=== PATIENT | male | born 1965 | race Caucasian/White ===

== ENCOUNTER 2019-07-21 09:53 | Emergency (ER) | payer OTHER ==
[2019-07-21] MEDS ORDERED: IBUPROFEN 600 MG TABLET PO ONE (10:47)
--- NOTE | 2019-07-21 10:53 | Emergency Department Record ---
History of Present Illness - General Chief complaint: Male Urogenital Problem Stated complaint: GROIN PAIN/WORK INJURY Time Seen by Provider: 07/21/19 10:19 Source: Patient Mode of Arrival: Ambulatory Limitations: No limitations - History of Present Illness Initial comments: 53 yo male presents from work with left groin pain after lifting about a 20 [address] weight. He felt a sharp pain in the groin radiating to the scrotum. No swelling or bulging. No dysuria. No testicle pain or swelling. He has had a hernia on the right in the past. MD Complaint: Other (Left groin pain) Onset/Timin -: Hour(s) Location: Left inguinal region Radiation: Other Severity: Moderate Severity scale (1-10): 7 Quality: Sharp Consistency: Constant Improves with: None Worsens with: None Reports: Denies other symptoms - Related Data Home Medications Medication Instructions Recorded Confirmed Last Taken Fluticasone/Vilanterol [Breo 1 each IH DAILY 07/21/19 07/21/19 Unknown Ellipta 100-25 Mcg INH] Allergies Allergy/AdvReac Type Severity Reaction Status Date / Time No Known Drug Allergies Allergy Verified 07/21/19 10:27 Travel Screening - Travel/Exposure Within Last 30 Days Have you traveled within the last 30 days?: No Review of Systems Constitutional: Denies: Chills, Fever, Malaise, Weakness Eyes: Denies: Eye discharge ENT: Denies: Congestion, Throat pain Respiratory: Denies: Cough, Dyspnea Cardiovascular: Denies: Chest pain, Palpitations, Syncope Endocrine: Denies: Fatigue Gastrointestinal: Reports: Abdominal pain. Denies: Diarrhea, Nausea, Vomiting Genitourinary: Denies: Dysuria, Frequency, Hematuria, Retention, Testicular pain, Testicular mass, Urgency Musculoskeletal: Denies: Arthralgia, Back pain, Myalgia Skin: Denies: Bruising, Change in color, Rash Neurological: Denies: Headache Psychiatric: Denies: Anxiety Hematological/Lymphatic: Denies: Easy bleeding, Easy bruising Past Medical History - SOCIAL HISTORY Smoking Status: Former smoker Alcohol Use: None Drug Use: None - RESPIRATORY Hx Respiratory Disorders: Yes Hx COPD: Yes - CARDIOVASCULAR Hx Cardio Disorders: No - NEURO Hx Neuro Disorders: No - GI Hx GI Disorders: No - Hx Genitourinary Disorders: No - ENDOCRINE Hx Endocrine Disorders: No - MUSCULOSKELETAL Hx Musculoskeletal Disorders: No - PSYCH Hx Psych Problems: No - HEMATOLOGY/ONCOLOGY Hx Hematology/Oncology Disorders: No Family Medical History Any Significant Family History?: No Physical Exam - General General Appearance: Alert, Oriented x3, Cooperative, No acute distress Limitations: No limitations - Head Head exam: Atraumatic, Normal inspection - Eye Eye exam: Normal appearance, PERRL. negative: Conjunctival injection, Scleral icterus - ENT ENT exam: Normal exam, Mucous membranes moist Ear exam: Normal external inspection Nasal Exam: Normal inspection Mouth exam: Normal external inspection - Neck Neck exam: Normal inspection - Respiratory Respiratory exam: Normal lung sounds bilaterally. negative: Respiratory distress - Cardiovascular Cardiovascular Exam: Regular rate, Normal rhythm, Normal heart sounds - GI/Abdominal GI/Abdominal exam: Soft, Tenderness, Other (On standing and with cough external ring slight fullness suggest hernia. It immediately reduced). negative: Distended, Guarding, Rebound, Rigid - exam: Circumcision, Normal inspection. negative: Scrotal swelling, Testicular tenderness - Extremities Extremities exam: Normal inspection - Back Back exam: Reports: Normal inspection - Neurological Neurological exam: Alert, Oriented X3 - Psychiatric Psychiatric exam: Normal affect, Normal mood - Skin Skin exam: Dry, Intact, Normal color, Warm Course Vital Signs 07/21/19 10:25 Temperature 98.4 F Pulse Rate 82 Respiratory 20 Rate Blood Pressure 150/82 Pulse Ox 96 - Reevaluation(s) Reevaluation #1: 07/21/19 11:29 Small left reducible inguinal hernia No signs of incarceration The patient will be made no lifting and referral to general surgery for follow up ([place]) Disposition Disposition: Discharge Clinical Impression: Inguinal hernia Qualifiers: Obstruction and gangrene presence: without obstruction or gangrene Laterality: unilateral Recurrence: not specified as recurrent Qualified Code(s): K40.90 - Unilateral inguinal hernia, without obstruction or gangrene, not specified as recurrent Disposition: Home, Self-Care Condition: (1) Good Instructions: Inguinal Hernia (ED) Additional Instructions: No lifting more than 5 pounds for one week Return or be seen immediately if you have swelling, pain You have been referred to Dr Roche of general surgery for follow up Referrals: Gerry Roche [DOCTOR OF OSTEOPATH] - Forms: Patient Portal Access Time of Disposition: 11:10 Quality - Quality Measures Quality Measures: N/A - Blood Pressure Screening Does Patient Have Any of the Following: Active Dx of HTN Blood Pressure Classification: Pre-Hypertensive BP Reading Systolic Measurement: 150 Diastolic Measurement: 82 Screening for High Blood Pressure: Patient Exclusion, Hx of HTN [[id number]]
== END 2019-07-21 11:09 | disposition home or self-care (01) ==
LOC: ER 09:53
DX: K40.90 Unilateral inguinal hernia, without obstruction or gangrene, not specified as recurrent (principal); X50.0XXA Overexertion from strenuous movement or load, initial encounter; Y92.63 Factory as the place of occurrence of the external cause; J44.9 Chronic obstructive pulmonary disease, unspecified; Z87.891 Personal history of nicotine dependence
CPT/HCPCS: 99283